=== PATIENT | female | born 1950 | race Caucasian/White ===

== ENCOUNTER → 2016-09-15 | Day surgery (SDC) | payer MEDICARE, OTHER ==
[~2016-09-15] MED LIST: Buffered Lidocaine 1% SYR 3ML* 3 ML/SYR SYRINGE INTRADERM ONE; Buffered Lidocaine 1% SYR 3ML* 3 ML/SYR SYRINGE ONE; Bupivacaine 0.25% SDV* 30 ML ONE; Clindamycin 900 MG IVPREMIX(* 900 MG/50 ML SDV IV ONE; Famotidine IV* 10 MG/ML 2 ML (20 mg) IV ONE; Famotidine IV* 10 MG/ML 2 ML (20 mg) ONE; KETAMINE HCL* 50 MG/ML 10 ML VIAL ONE; Ketorolac INJ* 30 MG/ML 1 ML VIAL ONE; Lidocaine 2% PF * 5 ML VIAL ONE; Midazolam* 1 MG/ML 5 ML VIAL (5 MG) ONE; Morphine INJ* 10 MG/ML 1 ML CARPUJECT ONE; Morphine INJ* 2 MG/ML 1 ML CARPUJECT IV PRN; Ondansetron INJ* 2 MG/ML VIAL ONE; PROCHLORPERAZINE INJ 5 MG/ML 2 ML VIAL IV PRN; PROCHLORPERAZINE INJ 5 MG/ML 2 ML VIAL ONE; Phenylephrine IV* 40 MCG/ML 10 ML SYRINGE ONE; Propofol* 10 MG/ML 20 ML BTL IV PUSH ONE; fentaNYL* 50 MCG/ML 2 ML VIAL (100 MCG VIAL) IV PRN; fentaNYL* 50 MCG/ML 2 ML VIAL (100 MCG VIAL) ONE; oxyCODONE/Acetamin 5/325 MG* TAB PO PRN
[2016-09-15 18:01] VITALS: BP 133/62
--- NOTE | 2016-09-16 16:14 | OP ---
DATE OF OPERATION: 09/15/16 - [facility] DATE OF : 50 SURGEON: Mulugeta Martinez MD BLIND AIDE: NORMA Britt. ANESTHESIOLOGIST: Dr. Batres. ANESTHESIA: General. PRE-OP DIAGNOSIS: Right thumb basal joint arthritis. POST-OP DIAGNOSIS: Right thumb basal joint arthritis. OPERATIVE PROCEDURE: 1. Right thumb carpometacarpal interposition arthroplasty. 2. Distally based split flexor carpi radialis tendon transfer for thumb suspension. INDICATIONS: Danay is a 65-year-old female with progressive right thumb pain. She has failed to respond to nonoperative treatments and we talked about risk and benefits that she elected to proceed with the surgery. EBL: 5 mL. COMPLICATIONS: None. FINDINGS: As expected. DESCRIPTION OF PROCEDURE: Danay was seen in the preoperative holding area and the correct side and site were marked. She came back to the operating room where anesthesia was induced and the arm was prepped and draped in the usual fashion and a formal time-out was performed. A standard longitudinal incision was made from the proximal aspect of the thumb metacarpal, down towards the radial styloid. She has first dorsal interosseus tendons. Dissection was carried down through the subcutaneous tissue. Care was taken to preserve the sensory branches of the radial nerve. The radial artery was identified and mobilized and retracted out of the way. I then went ahead and longitudinally split the capsule over the carpometacarpal joint and the trapezium. Full thickness periosteum capsular flaps were raised. The scaphotrapezial, the trapezial trapezoid and the basal joints were all visualized. I then used the rongeur to remove the trapezium in its entirety. The FCR tendon was visualized in the base of the wound. I then went ahead and used sequentially larger drill bits to obtain the hole through the base of the first metacarpal for my subsequent tendon transfer. Attention was then turned to the distal forearm where a transverse incision was made over the FCR tendon, just proximal to the wrist flexion crease. The FCR tendon was identified, and the sheath was opened up. I then went ahead and made 3 more transverse incisions along the course of the volar forearm to fully mobilize and free up the sheath and adhesions along the FCR tendon. I then went ahead and split the tendon distally and used a 26-gauge wire to split the tendon by pulling the wire sequentially into the more proximal wounds. The tendon was released in the muscular tendinous junction. I then went ahead and took the split a little bit further distal and then used the wires to pass the split into the FCR tendon down into the thumb base wound. Tendon split was completed, all the way down to the base of the second metacarpal. I then passed the split end of the tendon through the drill hole, I had previously made and then looped it back around the intact limb of the FCR tendon and then brought that up towards the ceiling and the tendon transfer was secured with multiple 3-0 Ethibond stitches. The thumb was in excellent position. I then followed up the rest of the FCR tendon and secured this with an Ethibond stitch and then placed this in interposition fashion between the base of the metacarpal and the distal pole of the scaphoid. The wound was irrigated and I then used a 3-0 Ethibond suture to close the capsule over the site of the trapeziectomy. I then injected all the wounds with Marcaine. The volar forearm wounds were then closed with 3-0 Polysorb followed by 4-0 nylon. The thumb base wound was closed with 4-0 nylon. The wounds were dressed with Xeroform, 4 x 4, sterile, Webril, and a thumb spica splint was placed with DIP joint free. She was then woken back up and taken to recovery room in stable condition. [id number] #: [id number]
== END | disposition home or self-care (01) ==
LOC: OREAST 11:51
PROVIDERS: ATTEND Orthopaedic Surgery Hand Surgery
DX: M18.11 Unilateral primary osteoarthritis of first carpometacarpal joint, right hand (principal); J44.9 Chronic obstructive pulmonary disease, unspecified; G47.30 Sleep apnea, unspecified; E11.8 Type 2 diabetes mellitus with unspecified complications; Z79.4 Long term (current) use of insulin
CPT/HCPCS: 88304; 88311; J0780; J1885; J2250; J2270; J2405; J2704; J3010